=== PATIENT | female | born 1955 | race Caucasian/White ===

== ENCOUNTER 2016-11-16 14:30 | Emergency (ER) | payer OTHER ==
--- NOTE | 2016-11-16 15:22 | ED GI/GU/ABDOMINAL COMPLAINT ---
History of Present Illness General Chief Complaint: General Adult Stated Complaint: ?FOOD LODGED, PAIN IN BACK WHEN SWALLOWING SALIVA Source: patient Exam Limitations: no limitations Vital Signs & Intake/Output Vital Signs & Intake/Output Vital Signs Date Time Temp Pulse Resp B/P Pulse O2 O2 Flow FiO2 Ox Delivery Rate 11/16 1700 98.0 97 16 151/98 97 Room Air 11/16 1545 Room Air 11/16 1435 98.9 120 20 147/96 97 Room Air Allergies Coded Allergies: No Known Allergies (11/16/16) Reconcile Medications Amlodipine/Valsartan (Exforge 10-320 MG Tablet) 10 MG-320 MG TABLET 1 TAB PO DAILY BP (Reported) Calcium Carbonate/Vitamin D3 (Calcium 500 + D Tablet) (Unknown Strength) TABLET (Unknown Dose) PO DAILY SUPPLEMENT (Reported) Levothyroxine Sodium 112 MCG TABLET 1 TAB PO DAILY THYROID (Reported) Lorazepam 0.5 MG TABLET 1 TAB PO PRN ANXIETY (Reported) [place] Hero-3S/Dha/Epa/Fish Oil (Fish Oil 1,200 MG Softgel) (Unknown Strength) CAPSULE (Unknown Dose) PO DAILY SUPPLEMENT (Reported) Omeprazole 40 MG CAPSULE.DR 1 CAP PO DAILY ACID REFLUX Triage Note: TRIAGE; PT TO ED WITH ?FOOD BOLUS. STATES HAS BEEN X1 HOUR. ABLE TO SWALLOW SALIVA. HAS PAIN BEHIND RIGHT SHOULDER AND BACK WHEN SWALLOWING. DENIES ANY DIFFICULTY BREATHING OR SOB. Triage Nurses Notes Reviewed? yes ? n Is pt currently ? No Onset: Abrupt Duration: hour(s):, gone now Timing: single episode today Location: epigastric Radiation: no radiation No Modifying Factors: none HPI: 61-year-old female comes into the emergency room for further evaluation of pain in her chest after a piece of chicken got stuck while she was swallowing it. Patient reports that she swallowed some food around lunchtime. She reports that she can feel the food gets stuck and she had a pain center for chest that radiated to her back. She reports that this is happened to her before when she seen in with a completely resolves. This was not going away for about an hour. Patient came in for further evaluation. She reports that prior to me coming into the room she had resolution of her symptoms and feels better. She no longer has any pain. (GRIFFIN GAYTAN,MAXIMO) Past History Travel History Traveled to [place] past 21 day No Medical History Any Pertinent Medical History? see below for history Cardiovascular: hypertension Surgical History Surgical History: non-contributory Psychosocial History What is your primary language Swedish Tobacco Use: Never used Family History Hx Contributory? No (MAXIMO TAVARES) Review of Systems Review of Systems Constitutional: Reports: no symptoms. EENTM: Reports: no symptoms. Respiratory: Reports: no symptoms. Cardiovascular: Reports: no symptoms. GI: Reports: see HPI. Genitourinary: Reports: no symptoms. Musculoskeletal: Reports: no symptoms. Skin: Reports: no symptoms. Neurological/Psychological: Reports: no symptoms. Hematologic/Endocrine: Reports: no symptoms. Immunologic/Allergic: Reports: no symptoms. All Other Systems: Reviewed and Negative (MAXIMO TAVARES) Physical Exam Physical Exam General Appearance: well developed/nourished, no apparent distress, alert Head: atraumatic, normal appearance Eyes: Bilateral: normal appearance, EOMI. Ears, Nose, Throat, Mouth: hearing grossly normal, moist mucous membrane Neck: normal inspection, full range of motion Respiratory: normal breath sounds, no respiratory distress Cardiovascular: regular rate/rhythm Gastrointestinal: soft, non-tender Back: normal inspection Extremities: normal range of motion Neurologic/Psych: awake, alert, oriented x 3, normal gait, normal mood/affect Skin: intact, normal color Core Measures ACS in differential dx? No Severe Sepsis Present: No Septic Shock Present: No (MAXIMO TAVARES) Progress Differential Diagnosis: hemorrhoids, inflamm bowel dis, intrauterine , pancreatitis, peptic ulcer, PUD/GERD, perforated viscous, threatened AB, UTI/ pyelo, Esophageal food bolus Plan of Care: Orders Procedure Date/time Status TROPONIN LEVEL 11/16 1522 Complete COMPREHENSIVE METABOLIC PANEL 11/16 1522 Complete CBC WITHOUT DIFFERENTIAL 11/16 1522 Complete EKG 11/16 1522 Active Laboratory Tests 11/16/16 1539: Anion Gap 14, Estimated GFR > 60, BUN/Creatinine Ratio 30.0 H, Glucose 101 H, Calcium 9.8, Total Bilirubin 0.5, AST 28, ALT 42, Alkaline Phosphatase 75, Troponin I < 0.01, Total Protein 7.7, Albumin 4.6, Globulin 3.1, Albumin/ Globulin Ratio 1.5, CBC w Diff NO MAN DIFF REQ, RBC 4.96, MCV 86.2, MCH 28.9, RDW 13.0, MPV 7.8, Gran % 76.6 H, Lymphocytes % 15.2 L, Monocytes % 6.0, Eosinophils % 1.8, Basophils % 0.4, Absolute Granulocytes 6.4, Absolute Lymphocytes 1.3, Absolute Monocytes 0.5, Absolute Eosinophils 0.1, Absolute Basophils 0, PUBS MCHC 33.5 Initial ED EKG: normal intervals, normal p-waves, normal sinus rhythm, rate (99) , nonspecific ST T wave chg (MAXIMO TAVARES) Departure Departure Disposition: HOME OR SELF CARE Condition: Stable Clinical Impression Primary Impression: Dysphagia Referrals: AFRICA WILDER,ZEYNEP FUENTES MD,RACHEL Hood (PCP/Family) Additional Instructions: Take omeprazole as prescribed. Follow-up with clinic office coordinator provided for upper endoscopy. Return if any recurrent food bolus. Soft food diet. Return if any other concerns worsening symptoms. Please go over all results of today's visit with your primary care doctor. Contact your primary care doctor to let them know you were here in the emergency room. There may be nonspecific findings which may not be related to your visit today here in the emergency room but may require further evaluation and chronic monitoring by your primary care doctor. If you had a laceration today the chance of foreign body always remains. You should follow-up with your primary care doctor for recheck in 3-5 days for a wound check. If you had an x-ray done there is a chance that a fracture could have been missed on initial read and you should follow-up with your primary care doctor for repeat x-rays if symptoms persist. If your blood pressure was elevated here in the emergency room please have rechecked by her primary care doctor within the next 48 hours by your primary care doctor. If you were prescribed a narcotic here in the emergency room or any type of controlled substances you're not allowed to drive while taking this medication or operate any type of heavy machinery. Narcotics can make you feel lightheaded dizziness nausea and can cause constipation. You may need to sampler pickup a stool softener. Thank you for choosing [facility] emergency room. Please return to the emergency room immediately if you have any other concerns worsening of symptoms. Departure Forms: Customer Survey General Discharge Information Prescriptions: Current Visit Scripts Omeprazole 1 CAP PO DAILY #30 CAP Comments 11/16/2016 4:59:41 PM Patient clinically looks well. She is nontoxic-appearing. Patient complain of food getting stuck down into her chest when she swallowed some chicken. The pain in chest was related to esophageal food bolus. Patient was able to keep liquids down here and reports that the food dislodged and she could feel her symptoms resolve. Patient reports that this happened to her before when she is eating. Due to the nature of the pain EKG and blood work were sent. No concern or suspicion for any type of cardiac event. Patient needs an upper endoscopy. Patient started on proton pump inhibitor. Soft foods. No evidence of acute esophageal food bolus here. Patient was able to tolerate oral liquids. case discussed with dr aguero. (MAXIMO TAVARES) PA/DIRECTOR OF COUNTERINTELLIGENCE Co-Sign Statement Statement: ED Attending supervision documentation- x I saw and evaluated the patient. I have also reviewed all the pertinent lab results and diagnostic results. I agree with the findings and the plan of care as documented in the PA's/DIRECTOR OF COUNTERINTELLIGENCE's documentation. [] I have reviewed the ED Record and agree with the PA's/DIRECTOR OF COUNTERINTELLIGENCE's documentation. [] Additions or exceptions (if any) to the PAs/DIRECTOR OF COUNTERINTELLIGENCE's note and plan are summarized below: [] (LANA WILDER,DANIEL)
[2016-11-16 15:59] LABS: ABSOLUTE BASOPHIL COUNT 0 /CUMM (0.0-0.2); ABSOLUTE EOSINOPHIL COUNT 0.1 /CUMM (0.0-0.7); ABSOLUTE GRANULOCYTE CT 6.4 /CUMM (1.4-6.5); ABSOLUTE LYMPH COUNT 1.3 /CUMM (1.2-3.4); ABSOLUTE MONOCYTE COUNT 0.5 /CUMM (0.10-0.60); BASOPHIL % 0.4 % (0.0-2.0); EOSINOPHIL % 1.8 % (0-5); GRANULOCYTE % 76.6 % (42.2-75.2); HEMATOCRIT 42.8 % (37-47); MEAN CORPUSCULAR HGB 28.9 PG (27.0-31.0); MEAN CORPUSCULAR HGB CONC 33.5 G/DL (33.0-37.0); MEAN CORPUSCULAR VOLUME 86.2 FL (81.0-99.0); MEAN PLATELET VOLUME 7.8 FL (7.4-10.4); PLATELET COUNT 258 /CUMM (130-400); RED BLOOD CELL CT 4.96 /CUMM (4.20-5.40); WHITE BLOOD CELL COUNT 8.3 /CUMM (4.8-10.8)
[2016-11-16] MEDS ORDERED: LEVOTHYROXINE112 MCG PO (16:43)
[2016-11-16] MEDS ORDERED: EXFORGE 10-3201 EACH PO (16:43)
[2016-11-16] MEDS ORDERED: CALCIUM 500 +1 EAC5 PO (16:44)
[2016-11-16] MEDS ORDERED: FISH OIL 1,2001 EAC2 PO (16:44)
[2016-11-16] MEDS ORDERED: LORAZEPAM0.5 M1 PO (16:44)
[2016-11-16] MEDS ORDERED: OMEPRAZOLE40 M1 PO (16:56)
[2016-11-16 17:00] VITALS: BP 151/98
== END 2016-11-16 17:09 ==
LOC: ERH 14:30
PROVIDERS: Physician Assistant Medical
DX: R13.10 Dysphagia, unspecified (principal); R07.9 Chest pain, unspecified
CPT/HCPCS: 93005; 93010